=== PATIENT | male | born 1965 | race Caucasian/White ===

== ENCOUNTER 2021-03-13 14:58 | Observation (INO) ==
[2021-03-13 15:26] VITALS: BMI 29.0
[2021-03-13] MEDS ORDERED: NS 1,000 ML IV 1,000 ML IV STA (15:26)
[2021-03-13] MEDS ORDERED: NITRO-BID OINT 2% UD (E.R. USE ONLY) TD ONE (15:26)
--- NOTE | 2021-03-13 15:26 | DR.CP ---
HPI Time Seen Time Seen by Provider: 03/13/21 15:23 HPI Comment HPI Comment: PATIENT WITH A HISTORY OF HYPERTENSION, DIET CONTROLLED DIABETES COMPLAINS OF INTERMITTENT CHEST PAIN SHARP PRESSURE DISCOMFORT WITH REST, INSPIRATION AND AT REST. DENIES DYSPNEA, COUGH, DIAPHORSIS, AND PALPITATIONS. HAS OCCASIONAL RADIATION TO LEFT SHOULDER. Complaint Chief Complaint Doctor Comments: CHEST PAIN COVID-19 Coronavirus risk:travel/contact w/high risk person: No Has patient experienced Coronavirus symptoms: No Reviewed Nurses Notes Review: Yes Source History Provided: Patient Mode of Arrival Mode of Arrival: Ambulatory Timing Onset of Chief Complaint: 02/21/21 Duration Duration: Intermittent How lon Duration: Hours Location Chest Pain Radiation Location: Left Shoulder Quality Quality: Sharp and Pressure like PMH PMH Past Surgical History: No Family History Family Medical History: Cancer Social History Do you use any recreational Drugs:: No Travel Risk Coronavirus risk:travel/contact w/high risk person: No Has patient experienced Coronavirus symptoms: No ROS Review of Systems Constitutional: No Symptoms Reported Eyes: No Symptoms Reported ENTM: No Symptoms Reported Respiratoy: No Symptoms Reported Cardiovascular: See HPI and Chest Pain Gastrointestinal/Abdominal: No Symptoms Reported Genitourinary: No Symptoms Reported Neurological: No Symptoms Reported Musculoskeletal: No Symptoms Reported Integumentary: No Symptoms Reported Hematologic/Lymphatic: No Symptoms Reported Endocrine: No Symptoms Reported Psychiatric: No Symptoms Reported All Other Systems: Reviewed and Negative PE Vitals Vitals: Temperature 98.4 F Pulse Rate [Right Radial] 74 Pulse Rate 73 Respiratory Rate 17 Blood Pressure [Left Arm] 126/66 Blood Pressure 128/62 O2 Sat by Pulse Oximetry 96 General Limitations: No Limitations General Appearance: Alert Head Head Exam: Normal Inspection and Atraumatic Eyes Eye exam: Normal Appearance and PERRL ENT ENT Exam: Normal Exam and Normal Oropharynx Chest Chest Inspection: Normal Inspection Respiratory Respiratory Exam: Normal Lung Sounds Bilat Respiratory Exam: Bilateral: Clear to Auscultation Cardiovascular Cardiovascular Exam: Regular Rate and Normal Rhythm Pulse: Normal, Radial and Femoral Abdominal Exam Abdominal Exam: Normal Inspection, Normal Bowel Sounds and Soft Extremities Extremities Exam: Normal Inspection and Full ROM Back Back Exam: Normal Inspection and Full ROM Neurologic Neurological Exam: Alert and Oriented X3 Psychiatric Psychiatric Exam: Normal Affect and Normal Mood Skin Skin Exam: Warm and Dry MDM Differential Diagnosis Differential Diagnosis: Angina, Myocardial Infarction and Pulmonary Embolus COURSE Treatment Treatment: ADMINISTERED BABY ASPIRIN 324MG ORALLY, APPLICATION OF NITROPASTE 1"TO ANTERIOR CHEST WALL Reevaluation 1st: Resolved (CHEST PAIN RESOLVED PRIOR TO EMERGENCY ROOM ARRIVAL) Consultation Call Returned: 16:30 Consultation Comments: DISCUSSED FINDINGS WITH DR RODRIGUEZ AT 1630 FOR ADMIT TO OBSERVATION ROR Labs Reviewed Laboratory Results Reviewed?: Yes Result Diagrams: 03/13/21 15:43 03/13/21 15:43 Laboratory: WBC 7.4 X10^3/uL (3.6-10.0) 03/13/21 15:43 RBC 4.75 X10^6/uL (4.7-6.0) 03/13/21 15:43 Hgb 15.4 g/dL (13.5-18.0) 03/13/21 15:43 Hct 44.0 % (42.0-54.0) 03/13/21 15:43 MCV 92.6 fL (80.0-100.0) 03/13/21 15:43 MCH 32.4 pg (27.0-34.0) 03/13/21 15:43 MCHC 35.0 g/dL (33.0-35.0) 03/13/21 15:43 RDW 13.4 % (11.6-16.5) 03/13/21 15:43 Plt Count 225 X10^3/uL (150.0-450.0) 03/13/21 15:43 MPV 7.6 fL (7.4-11.0) 03/13/21 15:43 Neut % (Auto) 49.0 % (42.0-75.0) 03/13/21 15:43 Lymph % (Auto) 33.2 % (21.0-51.0) 03/13/21 15:43 [place] % (Auto) 13.2 % (0.0-13.0) H 03/13/21 15:43 Eos % (Auto) 3.3 % (0.9-2.9) H 03/13/21 15:43 Baso % (Auto) 1.3 % (0.2-1.0) H 03/13/21 15:43 Neut # (Auto) 3.6 x10^3/uL (2.2-4.8) 03/13/21 15:43 Lymph # (Auto) 2.4 X10^3/uL (1.3-2.9) 03/13/21 15:43 [place] # (Auto) 1.0 x10^3/uL (0.3-0.8) H 03/13/21 15:43 Eos # (Auto) 0.2 x10^3/uL (0.0-0.2) 03/13/21 15:43 Baso # (Auto) 0.1 X10^3/uL (0.0-0.1) 03/13/21 15:43 Absolute Nucleated RBC 0.0 /100WBC 03/13/21 15:43 PT 15.3 SECONDS (11.8-14.3) 03/13/21 15:43 INR Target Range - 03/13/21 15:43 INR 1.27 (0.8-1.3) 03/13/21 15:43 D-Dimer < 0.27 ug/ml (0.0-0.57) 03/13/21 15:43 Sodium 138 mmol/L (136-145) 03/13/21 15:43 Corrected Sodium 139 mmol/L (136-145) 03/13/21 15:43 Potassium 3.9 mmol/L (3.5-5.1) 03/13/21 15:43 Chloride 104 mmol/L (98-107) 03/13/21 15:43 Carbon Dioxide 23.7 mmol/L (21-32) 03/13/21 15:43 BUN 13 mg/dL (7-18) 03/13/21 15:43 Creatinine 0.88 mg/dL (0.70-1.30) 03/13/21 15:43 Est GFR (MDRD) Af Amer > 60 (>60) 03/13/21 15:43 Est GFR (MDRD) Non-Af > 60 (>60) 03/13/21 15:43 Glucose 125 mg/dL (65-99) H 03/13/21 15:43 Calcium 8.6 mg/dL (8.5-10.1) 03/13/21 15:43 Corrected Calcium 9.2 mg/dL (8.5-10.1) 03/13/21 15:43 Magnesium 2.1 mg/dL (1.7-2.9) 03/13/21 15:43 Total Bilirubin 0.30 mg/dL (0.2-1.0) 03/13/21 15:43 AST 42 Units/L (15-37) H 03/13/21 15:43 ALT 109 Units/L (12-78) H 03/13/21 15:43 Alkaline Phosphatase 48 Units/L (46-116) 03/13/21 15:43 Troponin I < 0.02 ng/mL (0-1.5) 03/13/21 15:43 B-Natriuretic Peptide 11.2 pg/mL (0-79) 03/13/21 15:43 Total Protein 7.3 g/dL (6.4-8.2) 03/13/21 15:43 Albumin 3.3 g/dL (3.4-5.0) L 03/13/21 15:43 Globulin 4.0 g/dL (2.5-4.5) 03/13/21 15:43 Albumin/Globulin Ratio 0.8 Ratio (1.1-2.1) L 03/13/21 15:43 SARS CoV-2 RNA Rapid DOTTY Negative (NEGATIVE) 03/13/21 13:57 XRAY X-ray Results: PORTABLE CHEST XRAY NO ACUTE PROCESS EKG Rate: 82 [place]: Normal Rhythm: NSR (EARLY REPOLARIZATION) Opioid Opioid Risk Tool Age (Naeem box if 16-45): No Total: 0 Total Score Risk Category: Low Risk Copyright: Pedro BULLOCK predicting aberrant behaviors Diagnosis Discharge Problem: Acute chest pain
[2021-03-13] MEDS ORDERED: NS 1,000 ML IV 1,000 ML ONE (15:38)
[2021-03-13 15:53] LABS: BASOPHILS # (AUTO) 0.1 X10^3/uL (0.0-0.1); BASOPHILS % (AUTO) 1.3 % (0.2-1.0); EOSINOPHILS # (AUTO) 0.2 x10^3/uL (0.0-0.2); EOSINOPHILS % (AUTO) 3.3 % (0.9-2.9); HEMOGLOBIN 15.4 g/dL (13.5-18.0); LYMPHOCYTES # (AUTO) 2.4 X10^3/uL (1.3-2.9); LYMPHOCYTES % (AUTO) 33.2 % (21.0-51.0); MEAN CORPUSCULAR HEMOGLOBIN 32.4 pg (27.0-34.0); MEAN CORPUSCULAR VOLUME 92.6 fL (80.0-100.0); MEAN PLATELET VOLUME 7.6 fL (7.4-11.0); MONOCYTES % (AUTO) 13.2 % (0.0-13.0); NEUTROPHILS # (AUTO) 3.6 x10^3/uL (2.2-4.8); PLATELET COUNT 225 X10^3/uL (150.0-450.0); RED BLOOD COUNT 4.75 X10^6/uL (4.7-6.0); RED CELL DISTRIBUTION WIDTH 13.4 % (11.6-16.5); WHITE BLOOD COUNT 7.4 X10^3/uL (3.6-10.0)
--- NOTE | 2021-03-13 15:56 | RAD ---
HISTORYPatient was seen at PCP this morning for chest pain, sent to ED for eval d/t abnormal EKG. Pt denies n/v, denies sob.STUDYCHEST, 1 VIEWCOMPARISONNoneTECHNIQUEAP view of the chestFINDINGSThe cardiac and mediastinal contours are within normal limits. The lungs are clear without focal consolidation or segmental collapse. No pleural effusion or pneumothorax.IMPRESSIONNo acute pulmonary process.Electronically signed by: Ric Maldonado (Mar 13, 2021 15:54:33)
[2021-03-13 16:13] LABS: ALANINE AMINOTRANSFERASE 109 Units/L (12-78); ALBUMIN 3.3 g/dL (3.4-5.0); ALKALINE PHOSPHATASE 48 Units/L (46-116); ASPARTATE AMINO TRANSFERASE 42 Units/L (15-37); BLOOD UREA NITROGEN 13 mg/dL (7-18); CALCIUM 8.6 mg/dL (8.5-10.1); CARBON DIOXIDE 23.7 mmol/L (21-32); CHLORIDE 104 mmol/L (98-107); COR CA(FOR HYPOALB) 9.2 mg/dL (8.5-10.1); COR NA(FOR HYPERGLY) 139 mmol/L (136-145); CREATININE 0.88 mg/dL (0.70-1.30); MAGNESIUM 2.1 mg/dL (1.7-2.9); SODIUM 138 mmol/L (136-145); TOTAL PROTEIN 7.3 g/dL (6.4-8.2); TROPONIN I < 0.02 ng/mL (0-1.5); eGFR NON BLACK RACES > 60 (>60)
[2021-03-13] MEDS ORDERED: ASPIRIN 81 MG CHEWTAB ONE (16:25)
[2021-03-13] MEDS ORDERED: NITRO-BID OINT 2% UD (E.R. USE ONLY) ONE (16:25)
[2021-03-13] MEDS ORDERED: NITROSTAT SL PRN (17:06)
[2021-03-13] MEDS: NS 1,000 ML IV 1,000 ML IV SCH (17:56)
[2021-03-14 01:08] LABS: CKMB % 1.5 % (<4); CREATINE KINASE 119 Units/L (39-308); CREATINE KINASE MB 1.8 ng/mL (0-4.0); TROPONIN I < 0.02 ng/mL (0-1.5)
[2021-03-14 07:38] LABS: BASOPHILS # (AUTO) 0.1 X10^3/uL (0.0-0.1); LYMPHOCYTES # (AUTO) 2.1 X10^3/uL (1.3-2.9); NEUTROPHILS # (AUTO) 3.1 x10^3/uL (2.2-4.8); RED CELL DISTRIBUTION WIDTH 13.4 % (11.6-16.5); WHITE BLOOD COUNT 6.1 X10^3/uL (3.6-10.0)
[2021-03-14 07:40] VITALS: BP 157/83
[2021-03-14 07:43] LABS: BASOPHILS % (AUTO) 1.5 % (0.2-1.0); EOSINOPHILS # (AUTO) 0.2 x10^3/uL (0.0-0.2); EOSINOPHILS % (AUTO) 3.3 % (0.9-2.9); HEMATOCRIT 45.9 % (42.0-54.0); LYMPHOCYTES % (AUTO) 33.8 % (21.0-51.0); MEAN CORPUSCULAR HEMOGLOBIN 32.5 pg (27.0-34.0); MEAN CORPUSCULAR HGB CONC 34.9 g/dL (33.0-35.0); MEAN CORPUSCULAR VOLUME 92.9 fL (80.0-100.0); MEAN PLATELET VOLUME 7.9 fL (7.4-11.0); MONOCYTES # (AUTO) 0.7 x10^3/uL (0.3-0.8); MONOCYTES % (AUTO) 10.8 % (0.0-13.0); NEUTROPHILS % (AUTO) 50.6 % (42.0-75.0); PLATELET COUNT 222 X10^3/uL (150.0-450.0); RED BLOOD COUNT 4.94 X10^6/uL (4.7-6.0)
[2021-03-14 07:58] LABS: CKMB % 1.4 % (<4); CREATINE KINASE 112 Units/L (39-308); CREATINE KINASE MB 1.6 ng/mL (0-4.0); TROPONIN I < 0.02 ng/mL (0-1.5)
[2021-03-14 08:14] LABS: ALANINE AMINOTRANSFERASE 121 Units/L (12-78); ALBUMIN 3.5 g/dL (3.4-5.0); ALKALINE PHOSPHATASE 51 Units/L (46-116); ASPARTATE AMINO TRANSFERASE 50 Units/L (15-37); BLOOD UREA NITROGEN 11 mg/dL (7-18); CALCIUM 8.4 mg/dL (8.5-10.1); CARBON DIOXIDE 24.6 mmol/L (21-32); CHLORIDE 105 mmol/L (98-107); COR NA(FOR HYPERGLY) 139 mmol/L (136-145); CREATININE 0.82 mg/dL (0.70-1.30); SODIUM 138 mmol/L (136-145); TOTAL PROTEIN 7.6 g/dL (6.4-8.2); eGFR NON BLACK RACES > 60 (>60)
[2021-03-14] MEDS ORDERED: ASPIRIN 81 MG CHEWTAB PO SCH ×2 (09:00)
[2021-03-14] MEDS ORDERED: ZESTRIL TAB 10 MG PO SCH (09:00)
[2021-03-14] MEDS: NS 1,000 ML IV 1,000 ML IV SCH (09:07)
--- NOTE | 2021-03-20 12:02 | DR.CARTERS ---
Short Stay Summary - Admission Date Date of Admission: 03/13/21 - Discharge Date Discharge Date: 03/14/21 - Admission Diagnoses (1) Chest pain, rule out acute myocardial infarction Status: Acute - Hospital Course Hospital Course: TIME SPENT ON CLINICAL ASSESSMENT, REVIEWING LABS AND IMAGING, DECISION MAKING, AND DOCUMENTATION GREATER THAN 75 MINUTES. IS A 56 YEAR OLD PATIENT OF OURS. HE PRESENTED TO THE ER WITH COMPLAINTS OF CHEST PAIN. PAIN WAS DESCRIBED SUBSTERNAL, SHARP, INTERMITTENT, AND WAS REATED A 6/10 ON ARRIVAL. HE ADMITTED TO OCCASIONAL RADIATION TO THE LEF T SHOULDER. PAIN IS PRESENT AND REST AND IS WORSE ON INSPIRATION. HE DENIES NAUSEA OR VOMITING. HIS PMH INCLUDES HTN AND DIET CONTROLLED DIABETES. ON ARRIVAL TO THE HOSPITAL, VITALS WERE: 98.4-76-18-96%-134/78. LABS WERE OBTAINED. ABNORMAL LAB VALUES INCLUDE THE FOLLOWING: GLUCOSE 125, AST 42, ALT 109, ALBUMIN 3.3. CARDIAC ENZYMES WERE WITHIN NORMAL LIMITS. COVID-19 NEGATIVE. EKG OBTAINED AND REVEALED: SINUS RHYTHM WITH HR 82. CHEST XRAY REVEALED: NO ACUTE PULMONARY PROCESS. IN THE ER, HE WAS GIVEN NITRO-BID OINTMENT X 1 DOSE, ASPIRIN 324MG. HE WAS ADMITTED TO THE HOSPITALS FOR FURTHER EVALUATION AND TREATMENT OF CHEST PAIN, RULE OUT ACUTE CO. HE WAS STARTED ON NORMAL SALINE AT KVO, LISINOPRIL 10MG PO DAILY, ASPIRIN 81MG PO DAILY, NITROGLYCERIN 0.4MG SL Q5M PRN, AND OTBS ACHS. WE PLANNED TO OBTAIN SERIAL CARDIAC ENZYMES AND EKGS. OTHERWISE, WE PLANNED TO FOLLOW UP WITH AM LABS AND CONTINUE TO MONITOR. ON THE MORNING FOLLOWING ADMISSION, PATIENT IS ALERT AND ORIENTED, LYING IN BED ON MORNING ROUNDS. HE DENIES CURRENTLY HAVING ANY CHEST PAIN OR SHORTNESS OF BREATH AND IS REQUESTING DISCHARGE HOME. ON EXAMINATION, HEART IS REGULAR IN RATE AND RHYTHM. BILATERAL LUNGS ARE CLEAR TO AUSCULTATION. ABDOMEN IS ROUND, SOFT, AND NON-TENDER WITH NORMAL BOWEL SOUNDS NOTED IN ALL QUADRANTS. HIS VITALS THIS MORNING ARE: 97.6-78-20-97%-157/83. LABS WERE OBTAINED. ABNORMAL LAB VALUES INCLUDE THE FOLLOWING: GLUCOSE 146, CALCIUM 8.4, AST 50, ALT 121. CARDIAC ENZYMES AND EKGS HAVE BEEN WITHIN NORMAL LIMITS. WE PLANNED FOR DISCHARGE. INSTRUCTIONS FOR MEDICATIONS AND FOLLOW UP WERE DISCUSSED WITH PATIENT. HE VERBALIZED UNDERSTANDING OF ALL ORDERS. HE WAS GIVEN NEW PRESCRIPTIONS FOR AMLODIPINE 5MG PO DAILY, ECOTRIN 81MG PO DAILY, AND CRESTOR 5MG PO HS. HE WAS INSTRUCTED TO CONTINUE THE LISINOPRIL. 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 PATIENT DISCHARGED HOME WITH FAMILY IN STABLE, IMPROVED CONDITION. TIME SPENT ON CLINICAL ASSESSMENT, REVIEWING LABS AND IMAGING, DECISION MAKING, DISCHARGE INSTRUCTIONS, PREPARING DISCHARGE PAPERS, AND DOCUMENTATION GREATER THAN 75 MINUTES. - Discharge Medications Discharge Medications: Home Medication List lisinopril 10 mg PO DAILY 03/13/21 [History] amlodipine 5 mg PO DAILY #30 tab 03/14/21 [Rx] aspirin [Ecotrin Low Strength] 81 mg PO QDAY #30 tab 03/14/21 [Rx] rosuvastatin [Crestor] 5 mg PO HS #30 tab 03/14/21 [Rx] Prescriptions: amlodipine Owen Pandya aspirin [Ecotrin Low Strength] Owen Pandya rosuvastatin [Crestor] Owen Pandya - Discharge Plan Disposition: 01 HOME, SELF-CARE Condition: Stable Prescriptions: amlodipine 5 mg PO DAILY #30 tab aspirin [Ecotrin Low Strength] 81 mg PO QDAY #30 tab rosuvastatin [Crestor] 5 mg PO HS #30 tab - Follow up/Referrals Follow up/Referrals: Siddhartha [Other] - 03/21/21 10:30 am Barry Rome [STAFF PHYSICIAN] - 03/14/21 10:26 am (Referral faxed on 03/14/21. Office staff will contact you with appointment information.) - Instructions Instructions: Nonspecific Chest Pain, Adult, [id number], Form - Daily Diabetes Record, Chest Wall Pain, [id number], Type 2 Diabetes Mellitus, Self- Care, Adult, [id number], Hypertension, Adult, [id number], Form - Blood Pressure Record Sheet Additional Instructions: DIET TOLERATED. ACTIVITY TOLERATED. Forms: Excuse From Work or School, Precautions for COVID19, [facility], Patient Portal, Social Distancing
== END 2021-03-14 11:10 | disposition home or self-care (01) ==
LOC: MED/SURG 14:58 → ER 14:58 → MED/SURG 17:30
PROVIDERS: ADMIT Internal Medicine; ATTEND Internal Medicine
DX: Z20.822 Contact with and (suspected) exposure to COVID-19; R07.89 Other chest pain; I10 Essential (primary) hypertension